=== PATIENT | male | born 1960 | race Caucasian/White ===

== ENCOUNTER 2017-06-11 07:17 | Emergency (ER) | payer BC, OTHER ==
[~2017-06-11] VITALS: Ht 182.9 cm; Wt 95.5 kg
[~2017-06-11 07:17] MED LIST: ASPI325T PO; COLY4000S PO; DARV PO
[2017-06-11 07:20] VITALS: BP 145/93; PULSE 66; RESP 16; TEMP 97.4; O2SAT 97
--- NOTE | 2017-06-11 08:00 | PD ---
HPI Chief Complaint: Musculoskeletal Complaint Time Seen by Provider: 07:30 Travel History International Travel<30 days: No Contact w/Intl Traveler<30days: No Traveled to known affect area: No History of Present Illness HPI This patient complains of pain in the left side of his neck radiating down into his left shoulder. He's had this for 2 months on a daily basis. It is a nagging daily pain. There is no injury. Started for no reason the patient can come up with. 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 He does not have paresthesias or muscle weakness or sensory loss. Severity is moderate. No alleviating factors. Pain seems worse when he turns his head. PFSH Past Medical History Arthritis: Yes Diminished Hearing: No Tetanus Vaccination: > 5 Years Influenza Vaccination: No Past Surgical History Genitourinary Surgery: Yes (VASECTOMY) Social History Alcohol Use: No Tobacco Use: No Substance Use: No Allergies-Medications (Allergen,Severity, Reaction): Coded Allergies: No Known Allergies (Verified Adverse Reaction, Unknown, 06/11/17) Reported Meds & Prescriptions Reported Meds & Active Scripts Active Tramadol (Tramadol HCl) 50 Mg Tab 50 Mg PO Q6H PRN Review of Systems General / Constitutional: No: Fever Eyes: No: Visual changes HENT: Positive: Neck Pain, No: Headaches Cardiovascular: No: Chest Pain or Discomfort Respiratory: No: Shortness of Breath Gastrointestinal: No: Abdominal Pain Genitourinary: No: Dysuria Musculoskeletal: Positive: Pain Skin: No Rash Neurologic: No: Weakness Psychiatric: No: Depression Endocrine: No: Polydipsia Hematologic/Lymphatic: No: Easy Bruising Physical Exam Narrative NECK: Symmetrical appearance, midline trachea. No mass or crepitus. Thyroid without enlargement, tenderness, or mass. No midline tenderness. No bruising or swelling NEUROLOGICAL: Awake and alert. Pupils are equal round and reactive. Motor and sensory grossly within normal limits. Five out of 5 muscle strength in all muscle groups. Normal speech. Left shoulder exam is normal Back exam is normal Data Data Last Documented VS Vital Signs Date Time Temp Pulse Resp B/P (MAP) Pulse Ox O2 Delivery O2 Flow Rate FiO2 06/11/17 07:20 97.4 66 16 145/93 (110) 97 Orders Orders Spine, Cervical - Ltd (Ap&Lat) (06/11/17 ) Ketorolac Inj (Toradol Inj) (06/11/17 08:45) [facility] Medical Decision Making Medical Screen Exam Complete: Yes Emergency Medical Condition: Yes Medical Record Reviewed: Yes Differential Diagnosis Cervical strain, cervical disc herniation, radiculopathy Narrative Course I have reviewed the patient's electronic medical record. Reviewed cervical spine x-rays which reveal degenerative change and retrolisthesis at C5/C6 Patient is neurologically intact This is a chronic problem, daily over 2 months. We discussed that he needs to get outpatient follow-up and he may ultimately need an MRI for formal diagnosis. I don't think that needs to be done emergently now. I gave him Toradol injection. He is driving. I gave him tramadol prescription. He will call his primary physician tomorrow for follow-up. We discussed neurologic signs and symptoms such as muscle weakness or sensory loss or paresthesia and he will return promptly if any of these occur Diagnosis Primary Impression: Cervical radiculopathy Additional Instructions: The patient was advised to follow up with their physician and return if they worsen. The patient was warned about potential sedation for the medications they will receive on prescription. Med/Other Pt SpecificInfo: Prescription(s) given Scripts Tramadol (Tramadol) 50 Mg Tab 50 MG PO Q6H Y for PAIN, #20 TAB 0 Refills Prov: Reji Thorne MD 06/11/17 Disposition: 01 DISCHARGE HOME Condition: Stable Reji Thorne MD Jun 11, 2017 08:00
--- NOTE | 2017-06-11 08:20 | RADRPT ---
EXAM DATE/TIME: 06/11/2017 08:04 [facility] COMPARISON: No previous studies available for comparison. INDICATIONS : Left side neck pain today, no known injury MEDICAL HISTORY : None. SURGICAL HISTORY : None. ENCOUNTER: Initial ACUITY: 1 day PAIN SCORE: 10/10 LOCATION: Left neck FINDINGS: Two projection examination was performed. There is minimal retrolisthesis C5 on 6 otherwise normal a lignment. No evidence of fracture or subluxation. Vertebral body height is maintained. The disc sp aces are maintained with the exception of degenerative disc disease at C5-6.. The prevertebral soft tissues are of normal thickness. The atlanto-axial articulation is intact. CONCLUSION: Degenerative retrolisthesis C5-6. Aaron Cortes MD on June 11, 2017 at 8:15 Board Certified Radiologist. This report was verified electronically.
[2017-06-11] MEDS ORDERED: KETOROLAC TROMETHAMINE 60 MG/2 ML (IM) VIAL IM ONE (08:45)
[2017-06-11] MEDS ORDERED: TRAM50TA PO (09:10)
== END 2017-06-11 09:32 | disposition home or self-care (01) ==
LOC: PHED 07:17
DX: M54.12 Radiculopathy, cervical region (principal); M19.90 Unspecified osteoarthritis, unspecified site
CPT/HCPCS: 72040; 96372; 99283; J1885